=== PATIENT | female | born 1995 | race Caucasian/White ===

== ENCOUNTER 2017-07-13 11:31 | Emergency (ER) | payer MEDICAID ==
[~2017-07-13] VITALS: Ht 170.2 cm; Wt 50.1 kg
[2017-07-13 12:28] LABS: BASOPHILS # (AUTO) 0.03 x10^3/uL (0-0.1); BASOPHILS % (AUTO) 1 % (0-1); EOSINOPHILS # (AUTO) 0.03 x10^3/uL (0-0.4); EOSINOPHILS % (AUTO) 0 % (1-7); LYMPHOCYTES # (AUTO) 1.24 x10^3/uL (1-3.4); LYMPHOCYTES % (AUTO) 21 % (22-44); MD NO; MEAN CORPUSCULAR HEMOGLOBIN 29.5 pg (27.0-34.8); MEAN CORPUSCULAR VOLUME 89.3 fL (80-100); MEAN PLATELET VOLUME 7.3 fL (7.4-10.4); MONOCYTES # (AUTO) 0.28 x10^3/uL (0.2-0.8); MONOCYTES % (AUTO) 5 % (2-9); NEUTROPHILS # (AUTO) 4.48 x10^3/uL (1.8-6.8); NEUTROPHILS % (AUTO) 74 % (42-75); PLATELET COUNT 336 x10^3/uL (130-400); RED CELL DISTRIBUTION WIDTH 13.8 % (9.6-15.2)
[2017-07-13 12:40] LABS: ALANINE AMINOTRANSFERASE 12 U/L (12-78); ALBUMIN 4.1 g/dL (3.4-5.0); ANION GAP 7 mmol/L (5-15); CALCIUM 8.5 mg/dL (8.5-10.1); CHLORIDE 107 mmol/L (98-107); CREATININE 0.78 mg/dL (0.55-1.02)
[2017-07-13 12:44] LABS: ALKALINE PHOSPHATASE 62 U/L (45-117); BILIRUBIN,TOTAL 0.4 mg/dL (0.2-1.0); TOTAL PROTEIN 7.8 g/dL (6.4-8.2)
[2017-07-13 12:54] LABS: CULTURE INDICATED? YES; MICROSCOPIC INDICATED
[2017-07-13] MEDS ORDERED: IBUPROFEN 200 MG TABLET PO ONE (13:30)
[2017-07-13] MEDS ORDERED: IBUPROFEN 200 MG TABLET ONE (13:48)
[2017-07-13 15:10] VITALS: BP 104/67
== END 2017-07-13 15:12 | disposition home or self-care (01) ==
LOC: ED 13:44
DX: N20.0 Calculus of kidney (principal); N30.01 Acute cystitis with hematuria
CPT/HCPCS: 36415; 74176; 80053; 81001; 84703; 85025; 87086; 99285

== ENCOUNTER 2017-07-22 20:12 | Inpatient (IN) | payer MEDICAID ==
[~2017-07-22] VITALS: Ht 170.2 cm; Wt 48.0 kg
[2017-07-22] MEDS ORDERED: SODIUM CHLORIDE 0.9% 1,000 ML IV ONE ×2 (20:25→22:17)
[2017-07-22] MEDS ORDERED: MORPHINE SULFATE 4 MG/ML, 1ML IVPush PRN ×2 (20:30→22:30)
[2017-07-22] MEDS ORDERED: SODIUM CHLORIDE FLUSH 10ML SYR IVF ONE (20:30)
[2017-07-22] MEDS ORDERED: ONDANSETRON 2MG/ML, 2ML IVPush ONE (20:30)
[2017-07-22] MEDS ORDERED: ONDANSETRON 2MG/ML, 2ML ONE (20:33)
[2017-07-22] MEDS ORDERED: MORPHINE SULFATE 4 MG/ML, 1ML ONE (20:34)
[2017-07-22 20:54] LABS: BASOPHILS # (AUTO) 0.05 x10^3/uL (0-0.1); BASOPHILS % (AUTO) 1 % (0-1); EOSINOPHILS # (AUTO) 0.05 x10^3/uL (0-0.4); EOSINOPHILS % (AUTO) 1 % (1-7); LYMPHOCYTES # (AUTO) 2.13 x10^3/uL (1-3.4); LYMPHOCYTES % (AUTO) 22 % (22-44); MD NO; MEAN CORPUSCULAR HEMOGLOBIN 29.6 pg (27.0-34.8); MEAN CORPUSCULAR HGB CONC 33.1 g/dL (32.4-35.8); MEAN CORPUSCULAR VOLUME 89.6 fL (80-100); MEAN PLATELET VOLUME 7.7 fL (7.4-10.4); MONOCYTES % (AUTO) 8 % (2-9); NEUTROPHILS # (AUTO) 6.75 x10^3/uL (1.8-6.8); NEUTROPHILS % (AUTO) 69 % (42-75); PLATELET COUNT 272 x10^3/uL (130-400); RED BLOOD COUNT 4.28 x10^6/uL (3.82-5.3); RED CELL DISTRIBUTION WIDTH 13.1 % (9.6-15.2)
[2017-07-22 21:04] LABS: ANION GAP 10 mmol/L (5-15); CALCIUM 8.8 mg/dL (8.5-10.1); CHLORIDE 108 mmol/L (98-107); CREATININE 0.82 mg/dL (0.55-1.02)
[2017-07-22 21:05] LABS: ALBUMIN 3.8 g/dL (3.4-5.0)
[2017-07-22 21:24] LABS: CULTURE INDICATED? YES; MICROSCOPIC INDICATED
[2017-07-22] MEDS ORDERED: CEFTRIAXONE PMX 1GM/50ML 50 ML ONE (22:07)
[2017-07-22] MEDS ORDERED: SODIUM CHLORIDE FLUSH 10ML SYR IVF PRN (22:30)
[2017-07-22] MEDS ORDERED: ONDANSETRON 2MG/ML, 2ML IVPush PRN (22:30)
[2017-07-22] MEDS ORDERED: CEFTRIAXONE PMX 1GM/50ML 50 ML IVPB ONE (22:30)
[2017-07-22] MEDS ORDERED: OXYcodone/APAP 7.5/325MG TABLET PO ONE (23:30)
[2017-07-22] MEDS ORDERED: BISACODYL 10 MG SUPP PR PRN (23:30)
[2017-07-22] MEDS ORDERED: hydrALAzine 20 MG/ML, 1ML IVPush PRN (23:30)
[2017-07-22] MEDS: morphine SULFATE 10 MG/ML, 1ML IVPush PRN (23:47)
[2017-07-23] MEDS ORDERED: POLYETHYLENE GLYCOL 17 GM PACKET PO ONE (00:30)
[2017-07-23] MEDS: SODIUM CHLORIDE 0.9% 1,000 ML IV SCH ×3 (01:16→17:05)
[2017-07-23] MEDS: SENNA/DOCUSATE TABLET PO SCH ×2 (01:16→09:57)
[2017-07-23] MEDS: SIMETHICONE 125 MG CHEW TAB PO PRN ×2 (01:16→07:28)
[2017-07-23 01:23] VITALS: BP 106/65
[2017-07-23 02:04] VITALS: BP 110/64
[2017-07-23] MEDS: morphine SULFATE 10 MG/ML, 1ML IVPush PRN ×2 (02:56→07:28)
[2017-07-23] MEDS: HYDROcodone/APAP 5/325 TABLET PO PRN ×3 (05:01→18:51)
[2017-07-23] MEDS: LIDODERM 5% PATCH TD SCH (05:49)
[2017-07-23 06:59] VITALS: BP 123/84
[2017-07-23] MEDS: LORazepam 2 MG/ML, 1ML IVPush PRN ×2 (09:57→22:43)
[2017-07-23] MEDS: KETOROLAC 30 MG/1 ML IVPush PRN ×3 (09:57→23:07)
[2017-07-23] MEDS ORDERED: PHENAZOPYRIDINE 100 MG TABLET PO PRN (10:00)
[2017-07-23] MEDS ORDERED: METHYLNALTREXONE 12 MG/0.6 ML SQ SCH (10:00)
[2017-07-23] MEDS: METHYLNALTREXONE 12 MG/0.6 ML SQ SCH (13:57)
[2017-07-23] MEDS: ONDANSETRON 2MG/ML, 2ML IVPush PRN (14:36)
[2017-07-23 15:07] VITALS: BP 99/62
[2017-07-23 20:17] VITALS: BP 103/64
[2017-07-23] MEDS: CEFTRIAXONE 1,000 MG in DEXTROSE 5% 50 ML IV SCH (22:09)
[2017-07-23] MEDS ORDERED: CEFTRIAXONE PMX 1GM/50ML 50 ML IV SCH (22:30)
[2017-07-24 01:03] VITALS: BP 112/66
[2017-07-24] MEDS: SODIUM CHLORIDE 0.9% 1,000 ML IV SCH ×3 (01:14→17:00)
[2017-07-24] MEDS: HYDROcodone/APAP 5/325 TABLET PO PRN ×5 (01:38→19:59)
[2017-07-24] MEDS: TEMAZEPAM 15 MG CAPSULE PO PRN ×3 (01:40→23:55)
[2017-07-24] MEDS: LORazepam 2 MG/ML, 1ML IVPush PRN ×3 (04:32→16:53)
[2017-07-24] MEDS: KETOROLAC 30 MG/1 ML IVPush PRN ×4 (05:07→23:55)
[2017-07-24] MEDS: LIDODERM 5% PATCH TD SCH (05:07)
[2017-07-24 06:47] VITALS: BP 100/63
[2017-07-24] MEDS: SENNA/DOCUSATE TABLET PO SCH (08:52)
[2017-07-24] MEDS ORDERED: OMNIPAQUE 350 MG/ML, 100ML BOTTLE ONE (13:47)
[2017-07-24 13:51] VITALS: BP 124/78
[2017-07-24] MEDS: morphine SULFATE 10 MG/ML, 1ML IVPush PRN (17:35)
[2017-07-24] MEDS: CEFTRIAXONE 1,000 MG in DEXTROSE 5% 50 ML IV SCH (22:20)
[2017-07-24 22:21] VITALS: BP 116/73
[2017-07-25] MEDS: HYDROcodone/APAP 5/325 TABLET PO PRN ×4 (01:45→15:33)
[2017-07-25] MEDS: SODIUM CHLORIDE 0.9% 1,000 ML IV SCH ×3 (01:45→20:00)
[2017-07-25 02:30] VITALS: BP 101/65
[2017-07-25] MEDS: LIDODERM 5% PATCH TD SCH (05:45)
[2017-07-25] MEDS: KETOROLAC 30 MG/1 ML IVPush PRN ×3 (05:45→20:41)
[2017-07-25 08:00] VITALS: BP 115/69
[2017-07-25] MEDS: PHENAZOPYRIDINE 100 MG TABLET PO SCH (09:00)
[2017-07-25] MEDS: SENNA/DOCUSATE TABLET PO SCH (09:17)
[2017-07-25] MEDS ORDERED: PROPOFOL 10 MG/ML, 20ML ONE (17:15)
[2017-07-25] MEDS ORDERED: CIPROFLOXACIN/PMX 400MG/200ML 200 ML ONE (17:27)
[2017-07-25] MEDS ORDERED: KETOROLAC 30 MG/1 ML IV ONE (18:00)
[2017-07-25] MEDS ORDERED: FENTANYL PF 100 MCG/2ML IV PRN (18:00)
[2017-07-25] MEDS ORDERED: ONDANSETRON 2MG/ML, 2ML IVPush PRN (18:00)
[2017-07-25] MEDS ORDERED: PROMETHAZINE 25 MG/ML, 1ML IV PRN (18:00)
[2017-07-25] MEDS ORDERED: ACETAMINOPHEN 325 MG TABLET PO PRN (18:00)
[2017-07-25] MEDS ORDERED: OXYcodone 5 MG/5 ML ORAL.SOL UDC PO PRN (18:00)
[2017-07-25] MEDS ORDERED: KETOROLAC 30 MG/1 ML ONE (18:05)
[2017-07-25] MEDS ORDERED: FENTANYL PF 100 MCG/2ML ONE (18:05)
[2017-07-25] MEDS ORDERED: OXYcodone 5 MG/5 ML ORAL.SOL UDC ONE (18:05)
[2017-07-25 20:35] VITALS: BP 110/68
[2017-07-25] MEDS: METHYLNALTREXONE 12 MG/0.6 ML SQ SCH (20:41)
[2017-07-25] MEDS: TEMAZEPAM 15 MG CAPSULE PO PRN (20:42)
[2017-07-26 02:27] VITALS: BP 105/64
[2017-07-26] MEDS: SODIUM CHLORIDE 0.9% 1,000 ML IV SCH (04:00)
[2017-07-26] MEDS: KETOROLAC 30 MG/1 ML IVPush PRN (04:24)
[2017-07-26] MEDS: LIDODERM 5% PATCH TD SCH (05:30)
[2017-07-26] MEDS: ONDANSETRON 2MG/ML, 2ML IVPush PRN (05:59)
[2017-07-26 06:02] VITALS: BP 115/76
[2017-07-26 07:50] VITALS: BP 125/80
[2017-07-26] MEDS: PHENAZOPYRIDINE 100 MG TABLET PO SCH (09:50)
[2017-07-26] MEDS: SENNA/DOCUSATE TABLET PO SCH (09:50)
== END 2017-07-26 10:35 | disposition home or self-care (01) | DRG 760 ==
LOC: ED 21:18 → EDIP 22:17 → 4WST 23:16
PROVIDERS: ADMIT Internal Medicine; ATTEND Internal Medicine
PROC: 0TJB8ZZ Inspection of Bladder, Via Natural or Artificial Opening Endoscopic (ICD-10-PCS; principal; 2017-07-24)
PROC: 0TP98DZ Removal of Intraluminal Device from Ureter, Via Natural or Artificial Opening Endoscopic (ICD-10-PCS; 2017-07-25)
DX: N83.209 Unspecified ovarian cyst, unspecified side (principal); N20.2 Calculus of kidney with calculus of ureter; K59.00 Constipation, unspecified; N39.0 Urinary tract infection, site not specified; R10.9 Unspecified abdominal pain; Z87.11 Personal history of peptic ulcer disease; Z87.442 Personal history of urinary calculi
CPT/HCPCS: 36415; 74018; 74177; 76770; 80048; 81001; 82040; 83605; 84702; 85025; 87040; 87086; 96365; 96375; J0696; J0744; J1885; J2405; J2704; J3010; Q9967; J2060; J2270; J7030

== ENCOUNTER 2018-03-10 17:53 | Emergency (ER) | payer MEDICAID ==
[~2018-03-10] VITALS: Ht 170.2 cm; Wt 50.6 kg
[2018-03-10 18:58] LABS: BASOPHILS # (AUTO) 0.04 x10^3/uL (0-0.1); BASOPHILS % (AUTO) 1 % (0-1); EOSINOPHILS # (AUTO) 0.06 x10^3/uL (0-0.4); EOSINOPHILS % (AUTO) 1 % (1-7); LYMPHOCYTES % (AUTO) 16 % (22-44); MD NO; MEAN CORPUSCULAR HGB CONC 33.2 g/dL (32.4-35.8); MEAN CORPUSCULAR VOLUME 87.4 fL (80-100); MEAN PLATELET VOLUME 7.7 fL (7.4-10.4); MONOCYTES # (AUTO) 0.41 x10^3/uL (0.2-0.8); MONOCYTES % (AUTO) 6 % (2-9); NEUTROPHILS # (AUTO) 5.11 x10^3/uL (1.8-6.8); NEUTROPHILS % (AUTO) 76 % (42-75); PLATELET COUNT 352 x10^3/uL (130-400); RED BLOOD COUNT 4.85 x10^6/uL (3.82-5.3); RED CELL DISTRIBUTION WIDTH 13.6 % (9.6-15.2)
[2018-03-10 19:06] LABS: HCG UR SG < 1.005 (1.003-1.030); MICROSCOPIC INDICATED
[2018-03-10 19:11] LABS: ANION GAP 9 mmol/L (5-15); CALCIUM 9.3 mg/dL (8.5-10.1); CHLORIDE 108 mmol/L (98-107)
[2018-03-10 19:14] LABS: CULTURE INDICATED? NO
[2018-03-10 19:15] LABS: ALANINE AMINOTRANSFERASE 17 U/L (12-78); ALKALINE PHOSPHATASE 62 U/L (45-117); BILIRUBIN,TOTAL 0.3 mg/dL (0.2-1.0); CREATININE 0.81 mg/dL (0.55-1.02); TOTAL PROTEIN 8.8 g/dL (6.4-8.2)
[2018-03-10 19:54] VITALS: BP 114/73
== END 2018-03-10 20:19 | disposition home or self-care (01) ==
LOC: ED 20:05
DX: J04.0 Acute laryngitis (principal); R10.9 Unspecified abdominal pain; B97.89 Other viral agents as the cause of diseases classified elsewhere; R30.0 Dysuria
CPT/HCPCS: 36415; 71046; 74176; 80053; 81001; 81025; 85025; 86308; 87081; 87880; 99285

== ENCOUNTER 2018-07-02 12:07 | Emergency (ER) | payer MEDICAID ==
[~2018-07-02] VITALS: Ht 170.2 cm; Wt 49.8 kg
[2018-07-02 12:14] VITALS: BP 130/70
--- NOTE | 2018-07-02 12:45 | NUR ---
PT ON MENSES, REFUSES STRAIGHT CATH. AWARE.
[2018-07-02 12:55] LABS: BASOPHILS # (AUTO) 0.04 x10^3/uL (0-0.1); BASOPHILS % (AUTO) 1 % (0-1); EOSINOPHILS % (AUTO) 0 % (1-7); LYMPHOCYTES # (AUTO) 1.18 x10^3/uL (1-3.4); LYMPHOCYTES % (AUTO) 17 % (22-44); MD NO; MEAN CORPUSCULAR HEMOGLOBIN 29.6 pg (27.0-34.8); MEAN CORPUSCULAR HGB CONC 33.6 g/dL (32.4-35.8); MEAN CORPUSCULAR VOLUME 88.2 fL (80-100); MEAN PLATELET VOLUME 7.5 fL (7.4-10.4); MONOCYTES % (AUTO) 6 % (2-9); NEUTROPHILS # (AUTO) 5.25 x10^3/uL (1.8-6.8); NEUTROPHILS % (AUTO) 76 % (42-75); PLATELET COUNT 364 x10^3/uL (130-400); RED BLOOD COUNT 5.04 x10^6/uL (3.82-5.3)
[2018-07-02] MEDS ORDERED: BIRTH CONTROL PO (13:01)
[2018-07-02 13:07] LABS: ALBUMIN 4.4 g/dL (3.4-5.0); ANION GAP 8 mmol/L (5-15); CALCIUM 9.5 mg/dL (8.5-10.1); CHLORIDE 110 mmol/L (98-107); CREATININE 0.81 mg/dL (0.55-1.02)
[2018-07-02 13:32] LABS: MICROSCOPIC NOT IND
[2018-07-02 13:45] LABS: CULTURE INDICATED? NO
--- NOTE | 2018-07-02 14:07 | NUR ---
Patient/Caregiver given discharge instructions and they have confirmed that they understand the instructions. Patient ambulatory with steady gait.
== END 2018-07-02 14:08 | disposition home or self-care (01) ==
LOC: ED 13:31
DX: R07.89 Other chest pain (principal); M54.9 Dorsalgia, unspecified; R10.9 Unspecified abdominal pain
CPT/HCPCS: 36415; 80048; 81003; 82040; 84702; 85025; 93005; 99284

== ENCOUNTER 2018-11-12 16:39 | Emergency (ER) | payer MEDICAID ==
[~2018-11-12] VITALS: Ht 170.2 cm; Wt 51.0 kg
[~2018-11-12 16:39] MED LIST: BIRTH CONTROL PO
[2018-11-12 16:44] VITALS: BP 121/80
[2018-11-12] MEDS ORDERED: ONDANSETRON ODT 4 MG PO ONE (17:00)
[2018-11-12 17:27] LABS: HCG UR SG 1.005 (1.003-1.030); MICROSCOPIC NOT IND
[2018-11-12 17:29] LABS: BASOPHILS # (AUTO) 0.02 x10^3/uL (0-0.1); BASOPHILS % (AUTO) 0 % (0-1); EOSINOPHILS # (AUTO) 0.04 x10^3/uL (0-0.4); EOSINOPHILS % (AUTO) 0 % (1-7); LYMPHOCYTES # (AUTO) 1.82 x10^3/uL (1-3.4); LYMPHOCYTES % (AUTO) 18 % (22-44); MD NO; MEAN CORPUSCULAR VOLUME 90.9 fL (80-100); MONOCYTES % (AUTO) 6 % (2-9); NEUTROPHILS # (AUTO) 7.48 x10^3/uL (1.8-6.8); NEUTROPHILS % (AUTO) 75 % (42-75); PLATELET COUNT 383 x10^3/uL (130-400); RED BLOOD COUNT 4.95 x10^6/uL (3.82-5.3); RED CELL DISTRIBUTION WIDTH 13.3 % (9.6-15.2)
[2018-11-12 17:36] LABS: ALANINE AMINOTRANSFERASE 20 U/L (12-78); ALBUMIN 3.9 g/dL (3.4-5.0); ANION GAP 8 mmol/L (5-15); CALCIUM 9.2 mg/dL (8.5-10.1); CHLORIDE 105 mmol/L (98-107); CREATININE 0.83 mg/dL (0.55-1.02)
[2018-11-12 17:38] LABS: ALKALINE PHOSPHATASE 62 U/L (45-117); BILIRUBIN,TOTAL 0.4 mg/dL (0.2-1.0); TOTAL PROTEIN 8.4 g/dL (6.4-8.2)
[2018-11-12 17:46] LABS: CULTURE INDICATED? NO
[2018-11-12] MEDS ORDERED: ONDANSETRON ODT 4 MG ONE (18:36)
[2018-11-12] MEDS ORDERED: IBUPROFEN 200 MG TABLET ONE (18:36)
[2018-11-12] MEDS ORDERED: IBUPROFEN 200 MG TABLET PO ONE (19:00)
== END 2018-11-12 18:51 | disposition home or self-care (01) ==
LOC: ED 18:45
DX: R10.9 Unspecified abdominal pain (principal); R11.2 Nausea with vomiting, unspecified; R35.0 Frequency of micturition; Z87.442 Personal history of urinary calculi
CPT/HCPCS: 36415; 76770; 80053; 81003; 81025; 85025; 99284; Q0162

== ENCOUNTER 2019-10-14 18:39 | Emergency (ER) | payer MEDICAID ==
[~2019-10-14] VITALS: Ht 170.2 cm; Wt 81.8 kg
[2019-10-14] MEDS ORDERED: SODIUM CHLORIDE FLUSH 10ML SYR IVF ONE (19:00)
[2019-10-14 19:12] LABS: BASOPHILS # (AUTO) 0.05 x10^3/uL (0-0.1); BASOPHILS % (AUTO) 1 % (0-1); EOSINOPHILS # (AUTO) 0.08 x10^3/uL (0-0.4); EOSINOPHILS % (AUTO) 1 % (1-7); LYMPHOCYTES # (AUTO) 1.94 x10^3/uL (1-3.4); LYMPHOCYTES % (AUTO) 33 % (22-44); MD NO; MEAN CORPUSCULAR HEMOGLOBIN 29.1 pg (27.0-34.8); MEAN CORPUSCULAR HGB CONC 32.7 g/dL (32.4-35.8); MEAN CORPUSCULAR VOLUME 88.8 fL (80-100); MEAN PLATELET VOLUME 7.8 fL (7.4-10.4); MONOCYTES # (AUTO) 0.49 x10^3/uL (0.2-0.8); MONOCYTES % (AUTO) 8 % (2-9); NEUTROPHILS % (AUTO) 57 % (42-75); PLATELET COUNT 276 x10^3/uL (130-400); RED BLOOD COUNT 4.18 x10^6/uL (3.82-5.3); RED CELL DISTRIBUTION WIDTH 13.3 % (9.6-15.2)
[2019-10-14 19:20] LABS: ALANINE AMINOTRANSFERASE 17 U/L (12-78); ALBUMIN 3.5 g/dL (3.4-5.0); ANION GAP 7 mmol/L (5-15); CALCIUM 8.3 mg/dL (8.5-10.1); CHLORIDE 108 mmol/L (98-107); CREATININE 0.65 mg/dL (0.55-1.02)
[2019-10-14 19:24] LABS: ALKALINE PHOSPHATASE 53 U/L (45-117); BILIRUBIN,TOTAL 0.3 mg/dL (0.2-1.0); TOTAL PROTEIN 7.3 g/dL (6.4-8.2)
[2019-10-14 20:06] LABS: MICROSCOPIC NOT IND
[2019-10-14] MEDS ORDERED: ONDANSETRON 2MG/ML, 2ML ONE (20:07)
[2019-10-14 20:10] VITALS: BP 116/60
[2019-10-14] MEDS ORDERED: ONDANSETRON 2MG/ML, 2ML IVPush ONE (20:30)
[2019-10-14] MEDS ORDERED: OMNIPAQUE 350 MG/ML, 100ML BOTTLE ONE (21:11)
== END 2019-10-14 21:49 | disposition home or self-care (01) ==
LOC: ED 19:58
DX: N83.201 Unspecified ovarian cyst, right side (principal)
CPT/HCPCS: 36415; 74177; 80053; 81003; 83690; 84703; 85025; 96374; 99285; J2405; Q9967

== ENCOUNTER 2019-10-19 19:39 | Emergency (ER) | payer MEDICAID ==
[~2019-10-19] VITALS: Ht 170.2 cm; Wt 50.0 kg
--- NOTE | 2019-10-19 19:50 | NUR ---
EMS INTAKE COMPLETED, REPORT GIVEN TO GAYATHRI MINAYA.
[2019-10-19] MEDS ORDERED: ONDANSETRON 2MG/ML, 2ML ONE (20:16)
[2019-10-19] MEDS ORDERED: MORPHINE SULFATE 4 MG/ML, 1ML ONE (20:16)
[2019-10-19] MEDS ORDERED: ONDANSETRON 2MG/ML, 2ML IVPush ONE (20:30)
[2019-10-19] MEDS ORDERED: MORPHINE SULFATE 4 MG/ML, 1ML IVPush PRN (20:30)
[2019-10-19 20:50] LABS: MICROSCOPIC AUTO
[2019-10-19 21:05] LABS: BASOPHILS # (AUTO) 0.03 x10^3/uL (0-0.1); BASOPHILS % (AUTO) 1 % (0-1); EOSINOPHILS # (AUTO) 0.11 x10^3/uL (0-0.4); EOSINOPHILS % (AUTO) 2 % (1-7); LYMPHOCYTES # (AUTO) 1.54 x10^3/uL (1-3.4); LYMPHOCYTES % (AUTO) 22 % (22-44); MD NO; MEAN CORPUSCULAR HEMOGLOBIN 29.4 pg (27.0-34.8); MEAN CORPUSCULAR HGB CONC 33.2 g/dL (32.4-35.8); MEAN CORPUSCULAR VOLUME 88.6 fL (80-100); MEAN PLATELET VOLUME 7.6 fL (7.4-10.4); MONOCYTES # (AUTO) 0.59 x10^3/uL (0.2-0.8); MONOCYTES % (AUTO) 8 % (2-9); NEUTROPHILS # (AUTO) 4.74 x10^3/uL (1.8-6.8); NEUTROPHILS % (AUTO) 68 % (42-75); PLATELET COUNT 327 x10^3/uL (130-400); RED BLOOD COUNT 4.87 x10^6/uL (3.82-5.3); RED CELL DISTRIBUTION WIDTH 13.1 % (9.6-15.2)
[2019-10-19 21:16] LABS: ALANINE AMINOTRANSFERASE 19 U/L (12-78); ALBUMIN 4.2 g/dL (3.4-5.0); ANION GAP 7 mmol/L (5-15); CALCIUM 8.6 mg/dL (8.5-10.1); CHLORIDE 108 mmol/L (98-107); CREATININE 0.82 mg/dL (0.55-1.02)
[2019-10-19 21:21] LABS: ALKALINE PHOSPHATASE 58 U/L (45-117); BILIRUBIN,TOTAL 0.3 mg/dL (0.2-1.0); TOTAL PROTEIN 8.1 g/dL (6.4-8.2)
[2019-10-19 22:28] VITALS: BP 104/59
== END 2019-10-19 22:30 | disposition home or self-care (01) ==
LOC: ED 21:25
DX: N83.291 Other ovarian cyst, right side (principal); R10.2 Pelvic and perineal pain; R10.31 Right lower quadrant pain
CPT/HCPCS: 36415; 76830; 80053; 81001; 83690; 84703; 85025; 87086; 96374; 96375; 99284; J2270; J2405

== ENCOUNTER 2019-12-01 11:06 | Emergency (ER) | payer MEDICAID ==
[~2019-12-01] VITALS: Ht 170.2 cm; Wt 54.0 kg
--- NOTE | 2019-12-01 11:08 | NUR ---
LATE ENTRY FOR 1108: PT PRESENTS TO ED WITH BILATERAL CHEST PRESSURE AND PALPITATIONS X 1 MONTH, SOB FOR PAST YEAR. PT HAS ALSO HAS HAD INTERMITTENT PALPITATIONS X 1 YEAR. PT STATES SHE HAS HAD MULTIPLE CARDIAC WORKUPS BUT UNABLE TO ESTABLISH WITH BIOMETRY TEACHER TO EVALUATE SX. PT HAS BEEN PRESCRIBED BETA BLOCKERS IN PAST WITH NO IMPROVEMENT IN SX. PT ALSO NOTES BODY ACHES X 1 WEEK. EKG TAKEN ON ARRIVAL. ALL MONITORS IN PLACE. CALL LIGHT IN REACH. AWAITING MD AND ORDERS.
[2019-12-01 12:10] LABS: BASOPHILS # (AUTO) 0.03 x10^3/uL (0-0.1); BASOPHILS % (AUTO) 0 % (0-1); EOSINOPHILS # (AUTO) 0.05 x10^3/uL (0-0.4); EOSINOPHILS % (AUTO) 1 % (1-7); LYMPHOCYTES % (AUTO) 15 % (22-44); MD NO; MEAN CORPUSCULAR HGB CONC 32.4 g/dL (32.4-35.8); MEAN CORPUSCULAR VOLUME 89.5 fL (80-100); MEAN PLATELET VOLUME 7.6 fL (7.4-10.4); MONOCYTES # (AUTO) 0.44 x10^3/uL (0.2-0.8); MONOCYTES % (AUTO) 6 % (2-9); NEUTROPHILS # (AUTO) 6.31 x10^3/uL (1.8-6.8); NEUTROPHILS % (AUTO) 79 % (42-75); PLATELET COUNT 326 x10^3/uL (130-400); RED CELL DISTRIBUTION WIDTH 13.2 % (9.6-15.2)
--- NOTE | 2019-12-01 12:12 | NUR ---
LATE ENTRY FOR 1212: PER KYLE'S INSTRUCTIONS, EKG TAKEN DIRECTLY AFTER PATIENT EXERTION (JUMPING JACKS IN ROOM). PT IS SINUS TACH RATE 170'S WITH NO ECTOPY WITH EXERTION. EKG REVIEWED BY KYLE WALTER. CARDIOLOGY CONSULT IN PROGRESS.
[2019-12-01 12:22] LABS: ALANINE AMINOTRANSFERASE 21 U/L (12-78); ALBUMIN 3.6 g/dL (3.4-5.0); ANION GAP 7 mmol/L (5-15); CALCIUM 8.6 mg/dL (8.5-10.1); CHLORIDE 107 mmol/L (98-107); CREATININE 0.66 mg/dL (0.55-1.02)
[2019-12-01 12:27] LABS: ALKALINE PHOSPHATASE 56 U/L (45-117); BILIRUBIN,TOTAL 0.4 mg/dL (0.2-1.0); TOTAL PROTEIN 7.8 g/dL (6.4-8.2); TROPONIN I < 0.015 ng/mL (0.000-0.045)
[2019-12-01 12:32] LABS: T4 (THYROXINE) 8.8 mcg/dL (4.8-13.9)
--- NOTE | 2019-12-01 13:00 | NUR ---
LATE ENTRY FOR 1300: AWAITING ORDERS FROM EDMD S/P CARDIOLOGY CONSULT. PT IS SINUS TACH RATE 100-110'S WITH NO ECTOPY ON INSURANCE REPRESENTATIVE. PT A&O, RESPS EVEN AND UNLABORED, NADN.
[2019-12-01 14:14] VITALS: BP 99/59
--- NOTE | 2019-12-01 14:27 | NUR ---
DC ORDERS RECEIVED. PT GIVEN DC INSTRUCTIONS AND SCRIPT, PT EDUCATED REGARDING DC RX FOR METOPROLOL. MOTHER AT BEDSIDE DURING DC EDUCATION, PT AND MOTHER EDUCATED EXTENSIVELY REGARDING TEST RESULTS, FOLLOW UP INSTRUCTIONS AND RETURN CRITERA. AT DC, PT IS SINUS TACH RATE 100-110'S WITH NO ECTOPY. NO ARRHYTHMIA OR ECTOPY NOTED FOR DURATION OF ED STAY. PT IS A&O, RESPS EVEN AND UNLABORED, NADN AT DC. PT AMBULATORY TO DC DESK WITH STEADY GAIT. ALL QUESTIONS ANSWERED.
== END 2019-12-01 14:28 | disposition home or self-care (01) ==
LOC: ED 14:26
DX: I49.9 Cardiac arrhythmia, unspecified (principal); R00.0 Tachycardia, unspecified; I21.9 Acute myocardial infarction, unspecified; I10 Essential (primary) hypertension; R07.89 Other chest pain
CPT/HCPCS: 36415; 71045; 80053; 83735; 84436; 84443; 84484; 84703; 85025; 93005; 99285

== ENCOUNTER 2020-02-04 10:47 | Emergency (ER) | payer MEDICAID ==
[~2020-02-04] VITALS: Ht 170.2 cm; Wt 53.0 kg
[2020-02-04] MEDS ORDERED: ONDANSETRON 2MG/ML, 2ML ONE (11:15)
[2020-02-04] MEDS ORDERED: MORPHINE SULFATE 4 MG/ML, 1ML ONE (11:15)
--- NOTE | 2020-02-04 11:20 | NUR ---
kelley. report received from ems. pt c/o rlq abd pain with nausea and vaginal bleeding x 2 days. hx ovarian cyst(right). 1 pads every 2 hours. lmp 12/31/19. pt's aox4. resps even and unlabored. pt denies any urinary sx. bp/spo2 monitors in place. call light within reach.
[2020-02-04] MEDS ORDERED: MORPHINE SULFATE 4 MG/ML, 1ML IVPush PRN (11:30)
[2020-02-04] MEDS ORDERED: PLEASE ENTER HEIGHT AND WEIGHT MC SCH (11:30)
--- NOTE | 2020-02-04 11:30 | NUR ---
PT AMB TO BR AND BACK TO ROOM WITH STEADY GAIT. URINE COLLECTED AND UA SENT.
--- NOTE | 2020-02-04 11:42 | NUR ---
PIV EST ON R AC WITH NO COMPLICATIONS. PT MEDICATED PER EMAR. PT TOLERATED WELL.
--- NOTE | 2020-02-04 11:47 | NUR ---
US AT BEDSIDE AT THIS TIME.
[2020-02-04 11:51] LABS: BASOPHILS # (AUTO) 0.05 x10^3/uL (0-0.1); BASOPHILS % (AUTO) 1 % (0-1); EOSINOPHILS # (AUTO) 0.02 x10^3/uL (0-0.4); EOSINOPHILS % (AUTO) 0 % (1-7); LYMPHOCYTES # (AUTO) 1.09 x10^3/uL (1-3.4); LYMPHOCYTES % (AUTO) 17 % (22-44); MD NO; MEAN CORPUSCULAR HEMOGLOBIN 29.5 pg (27.0-34.8); MEAN CORPUSCULAR HGB CONC 33.2 g/dL (32.4-35.8); MEAN PLATELET VOLUME 8.3 fL (7.4-10.4); MONOCYTES # (AUTO) 0.34 x10^3/uL (0.2-0.8); MONOCYTES % (AUTO) 5 % (2-9); NEUTROPHILS # (AUTO) 4.84 x10^3/uL (1.8-6.8); NEUTROPHILS % (AUTO) 76 % (42-75); PLATELET COUNT 300 x10^3/uL (130-400); RED BLOOD COUNT 4.79 x10^6/uL (3.82-5.3); RED CELL DISTRIBUTION WIDTH 12.9 % (9.6-15.2)
[2020-02-04] MEDS ORDERED: SODIUM CHLORIDE FLUSH 10ML SYR IVF ONE (12:00)
[2020-02-04] MEDS ORDERED: ONDANSETRON 2MG/ML, 2ML IVPush ONE (12:00)
[2020-02-04 12:04] LABS: ALBUMIN 4.1 g/dL (3.4-5.0); ANION GAP 5 mmol/L (5-15); CALCIUM 9.2 mg/dL (8.5-10.1); CHLORIDE 110 mmol/L (98-107); CREATININE 0.76 mg/dL (0.55-1.02)
[2020-02-04 12:06] LABS: MICROSCOPIC INDICATED
[2020-02-04 12:35] VITALS: BP 99/60
--- NOTE | 2020-02-04 12:40 | NUR ---
PT BACK TO ROOM FROM US. PT RESTING IN [facility]. PT'S AOX4. RESPS EVEN AND UNLABORED.
--- NOTE | 2020-02-04 13:30 | NUR ---
PT RESTING IN [facility]. PT'S AOX4. RESPS EVEN AND UNLABORED. AWAITING DC PAPERS.
== END 2020-02-04 13:44 | disposition home or self-care (01) ==
LOC: ED 11:13
DX: N93.9 Abnormal uterine and vaginal bleeding, unspecified (principal); R10.31 Right lower quadrant pain; I10 Essential (primary) hypertension
CPT/HCPCS: 36415; 76830; 80048; 81001; 82040; 84703; 85025; 87086; 96374; 96375; 99284; J2270; J2405